=== PATIENT | female | born 1975 | race Caucasian/White ===

== ENCOUNTER → 2019-02-18 | Outpatient (CLI) | payer SELFPAY ==
[~2019-02-18] MED LIST: CALC200T27 PO; GADOBENATE 529MG/1ML 15ML VIAL IVP ONE; MONT10TA PO; NS(*) 0.9% 50 ML BAG 50 ML ONE
--- NOTE | 2019-02-21 14:53 | RADIOLOGY IMAGING REPORT ---
FACILITY: [facility] PATIENT NAME: OFELIA ONTIVEROS : [id number] MR: [id number] V: [id number] EXAM DATE: [id number] ORDERING PHYSICIAN: FATOUMATA COLLINS TECHNOLOGIST: Rosana Farias PROCEDURE:BREAST BILATERAL W/O AND/OR WITH CONTRAST COMPARISON:None. INDICATIONS:Strong family history breast cancer BREAST PROCEDURES/TREATMENTS: None TECHNIQUE:All imaging was performed prone on a dedicated breast coil. Axial & coronal T1 weighted images, axial T2 weighted, STIR & gradient echo imaging was performed of both breasts. Axial T1 weighted dynamically enhanced images were performed using 5 dynamic sequences. The dynamic series was timed for a 90 sec peak. Subtraction imaging was performed. 12ml Multihance was utilized for the post contrast portion of the examination. Post processing was performed using a DirectRM workstation. FINDINGS: Amount of fibroglandular tissue : Extreme fibroglandular tissue Background parenchymal enhancement: minimal. Masses: There is an ovoid circumscribed 4mm nonenhancing mass in the upper outer quadrant of the Left breast in the posterior depth consistent with a cyst. An additional 7mm cyst is identified in the inferolateral aspect of the Left breast. No abnormal areas of masslike or nonmasslike enhancement are identified within the breasts. There is no evidence of skin thickening or nipple retraction. The visualized portion of the liver & regional bones appear unremarkable. DIAGNOSTIC CATEGORY 0--INCOMPLETE: NEED ADDITIONAL IMAGING EVALUATION. RECOMMENDATIONS: ADDITIONAL MAMMOGRAPHIC VIEWS REQUIRED: BILATERAL BREASTS. PLEASE NOTE:A NORMAL MRI DOES NOT EXCLUDE THE POSSIBILITY OF BREAST CANCER. A CLINICALLY SUSPICIOUS PALPABLE LUMP SHOULD BE BIOPSIED. CORRELATION WITH CLINICAL EXAM AND OTHER IMAGING STUDIES IS RECOMMENDED. IMPRESSION: BIRADS 0: Incomplete, need additional imaging evaluation. There are several small cysts identified in the Left breast. No abnormal areas of masslike or nonmasslike enhancement identified in either breast. A bilateral mammogram is recommended given the patient's age & the lack of a prior mammogram by history. Dictated by: Ramya Gaines M.D. on 02/21/2019 at 10:56 Transcribed by: [email or web address] on 02/21/2019 at 14:08 Approved by: Ramya Gaines M.D. on 02/21/2019 at 14:50 [facility]
== END ==
LOC: MRI 00:26
PROVIDERS: ATTEND Nurse Practitioner
DX: R92.8 Other abnormal and inconclusive findings on diagnostic imaging of breast (principal)
CPT/HCPCS: 77049; A9577; J7050

== ENCOUNTER → 2019-03-04 | Outpatient (CLI) | payer SELFPAY ==
[~2019-03-04] MED LIST changes: -GADOBENATE 529MG/1ML 15ML VIAL IVP ONE; -NS(*) 0.9% 50 ML BAG 50 ML ONE
--- NOTE | 2019-03-05 09:51 | RADIOLOGY IMAGING REPORT ---
FACILITY: [facility] PATIENT NAME: OFELIA ONTIVEROS : [id number] MR: [id number] V: [id number] EXAM DATE: ORDERING PHYSICIAN: FATOUMATA COLLINS TECHNOLOGIST: Janice Milian PROCEDURE: BILATERAL DIGITAL SCREENING MAMMOGRAM WITH CAD ASSISTED INTERPRETATION & 3D TOMOSYNTHESIS. REASON FOR STUDY: Screening. FAMILY HISTORY OF BREAST CANCER: Mother in her 50's. BREAST PROCEDURES/TREATMENTS: None. COMPARISON: Bilateral breast MR 02/18/19. VIEWS OBTAINED: Bilateral 2D & 3D full field CC & MLO projections. BREAST DENSITY: The breasts are extremely dense which lowers the sensivity of mammography. MAMMOGRAM FINDINGS: There is no demonstration of malignant appearing mass or malignant appearing calcification in either breast. IMPRESSION: BIRADS 1: Negative. DIAGNOSTIC CATEGORY 1--NEGATIVE. RECOMMENDATIONS: ROUTINE MAMMOGRAM AND CLINICAL EVALUATION. Dictated by: Ramya Gaines M.D. on 03/04/2019 at 17:49 Transcribed by: [email or web address] on 03/05/2019 at 7:53 Approved by: Ramya Gaines M.D. on 03/05/2019 at 9:47 [facility]
== END ==
LOC: MAMO 00:22
PROVIDERS: ATTEND Nurse Practitioner
DX: Z12.31 Encounter for screening mammogram for malignant neoplasm of breast (principal); Z80.3 Family history of malignant neoplasm of breast
CPT/HCPCS: 77063; 77067